=== PATIENT | female | born 1955 | race Caucasian/White ===

== ENCOUNTER 2018-07-31 10:14 | Emergency (ER) | payer BC ==
--- NOTE | 2018-07-31 10:38 | ED ---
Palpitations / Dysrhythmia - HPI Summary HPI Summary: This pt is a 63 y/o female presenting to [facility] c/o palpitations since 0800 today. Pt reports she has had several episodes of palpitations for the past 3 months, about a couple of times a week. She describes palpitations as fluttering. She states that this morning her palpitations were more intense and lasted longer. She also notes she was dizzy today. Pt has felt dizziness once in a while with her past episodes of palpitations. Denies fever, chest pain, SOB , syncope. Pt drinks 1-2 cups of coffee every morning. Denies tobacco or drug use. No PMHx. Pt only takes vitamins, denies any other medications. - History of Current Complaint Chief Complaint: EDDysrhythmPalp Time Seen by Provider: 07/31/18 10:30 Hx Obtained From: Patient Onset/Duration: Lasting Hours, Still Present Timing: Intermittent Episodes Lasting: Severity Currently: Moderate Character: Fluttering Aggravating: Nothing Alleviating: Nothing Associated Signs & Symptoms: Dizzy - Allergy/Home Medications Allergies/Adverse Reactions: Allergies Allergy/AdvReac Type Severity Reaction Status Date / Time codeine Allergy Diaphoresis Verified 07/31/18 10:21 guaifenesin [From Robitussin] Allergy Palpitation Verified 07/31/18 10:21 s Penicillins Allergy Unknown Verified 07/31/18 10:21 Reaction Details Home Medications: Home Medications Cholecalciferol TAB* [Vitamin D TAB*] 400 unit PO DAILY 07/31/18 [History Confirmed 07/31/18] Guaifen/Phenyleph/Acetaminophn [Sinus Relief Sev Congest Cplt] 1 tab PO BID PRN 07/31/18 [History Confirmed 07/31/18] Multivitamins/Minerals TAB* [Theragran/minerals TAB*] 1 tab PO DAILY 07/31/18 [ History Confirmed 07/31/18] PMH/Surg Hx/FS Hx/Imm Hx Endocrine/Hematology History: Denies: Hx Diabetes Cardiovascular History: Denies: Hx Hypertension, Hx Pacemaker/ICD Sensory History: Denies: Hx Hearing Aid Psychiatric History: Denies: Hx Panic Disorder - Cancer History Hx Chemotherapy: No Hx Radiation Therapy: No - Surgical History Surgery Procedure, Year, and Place: RUPTURED ECTOPIC 1993 Infectious Disease History: No Infectious Disease History: Denies: Traveled Outside the [place] in Last 30 Days - Family History Known Family History: Positive: Diabetes - Social History Alcohol Use: Occasionally Substance Use Type: Reports: None Smoking Status (MU): Never Smoked Tobacco Review of Systems Negative: Fever Positive: Palpitations. Negative: Chest Pain Negative: Shortness Of Breath Neurological: Other - POS: dizziness Negative: Syncope All Other Systems Reviewed And Are Negative: Yes Physical Exam - Summary Physical Exam Summary: VITAL SIGNS: Reviewed. GENERAL: Patient is a well-developed and nourished female who is lying comfortable in the stretcher. Patient is not in any acute respiratory distress. HEAD AND FACE: No signs of trauma. No ecchymosis, hematomas or skull depressions. No sinus tenderness. EYES: PERRLA, EOMI x 2, No injected conjunctiva, no nystagmus. EARS: Hearing grossly intact. Ear canals and tympanic membranes are within normal limits. MOUTH: Oropharynx within normal limits. NECK: Supple, trachea is midline, no adenopathy, no JVD, no carotid bruit, no c- spine tenderness, neck with full ROM. CHEST: Symmetric, no tenderness at palpation LUNGS: Clear to auscultation bilaterally. No wheezing or crackles. CVS: Regular rate and rhythm, S1 and S2 present, no murmurs or gallops appreciated. ABDOMEN: Soft, non-tender. No signs of distention. No rebound, no guarding, and no masses palpated. Bowel sounds are normal. EXTREMITIES: FROM in all major joints, no edema, no cyanosis or clubbing. NEURO: Alert and oriented x 3. No acute neurological deficits. Speech is normal and follows commands. SKIN: Dry and warm Triage Information Reviewed: Yes Vital Signs On Initial Exam: Initial Vitals Temp Pulse Resp BP Pulse Ox 98.6 F 73 18 149/106 97 07/31/18 10:23 07/31/18 10:23 07/31/18 10:23 07/31/18 10:23 07/31/18 10:23 Vital Signs Reviewed: Yes Diagnostics - Vital Signs Vital Signs Temp Pulse Resp BP Pulse Ox 07/31/18 10:23 98.6 F 73 18 149/106 97 - Laboratory Result Diagrams: 07/31/18 11:22 07/31/18 11:22 Lab Statement: Any lab studies that have been ordered have been reviewed, and results considered in the medical decision making process. - Radiology Chest XR Radiology Interpretation Completed By: Radiologist Summary of Radiographic Findings: IMPRESSION: No active cardiopulmonary disease. Dr. Porras has reviewed this report. - EKG 10:30 Cardiac Rate: NL - at 71 bpm EKG Rhythm: Sinus Rhythm Summary of EKG Findings: No ST elevations. Diffuse ST abnormalities. Re-Evaluation - Re-Evaluation First Eval Re-Evaluation Time: 12:12 Comment: I reviewed the lab and CXR with the pt. She will be discharged home with follow up from her PCP. Course/Dx - Course Assessment/Plan: Patient is a 63-year-old female who presents to the emergency room with chief complaint of having palpitations. Blood work without any significant abnormality. Urinalysis negative for UTI. EKG shows a sinus rhythm without any ST elevations. Chest x-ray impression: No acute cardiopulmonary pathology. In the ED course the patient is asymptomatic. Therefore the patient will be discharged home with follow-up from primary care physician. I believe that the patient will benefit from a Holter monitor. I discussed all the findings and test results with the patient. Patient was instructed to return to the emergency room immediately if any of the symptoms return or worsens. Plan of care was discussed with the patient and she understands and agrees. All questions were answered at patient satisfaction. There were no further complaints or concerns. Lung exam before discharge: CTA B/ L. Good air exchange. No wheezing or crackles heard. CVS: S1 and S2 present. No murmurs appreciated. Patient is alert and oriented x 3. Patient is hemodynamically stable. Patient will be discharged home with follow up from her PCP in the next 2-3 days. - Diagnoses Provider Diagnoses: Palpitations Discharge - Sign-Out/Discharge Documenting (check all that apply): Patient Departure - Discharge home Patient Received Moderate/Deep Sedation with Procedure: No - Discharge Plan Condition: Stable Disposition: HOME Patient Education Materials: Heart Palpitations (ED) Forms: *Work Release Referrals: Luke Tay MD [Primary Care Provider] - Additional Instructions: FOLLOW UP WITH YOUR PRIMARY CARE PROVIDER WITHIN ONE WEEK FOR HIGH BLOOD PRESSURE NOTED TODAY. RETURN TO THE ED FOR ANY NEW OR WORSENING SYMPTOMS. - Billing Disposition and Condition Condition: STABLE Disposition: Home - Attestation Statements Document Initiated by Scribe: Yes Documenting Scribe: Suzan Hunt Provider For Whom Kermit[employer] is Documenting (Include Credential): Murali Porras MD Scribe Attestation: I, Suzan Hunt, scribed for Murali Porras MD on 07/31/18 at 1812. Scribe Documentation Reviewed: Yes Provider Attestation: The documentation as recorded by the scribe, Suzan Hunt accurately reflects the service I personally performed and the decisions made by me, Murali Porras MD Status of Scribe Document: Viewed
[2018-07-31 11:36] LABS: ABS Basophils 0 10^3/ul (0-0.2); ABS Eosinophils 0.2 10^3/ul (0-0.6); ABS Lymphocytes 1.5 10^3/ul (1.0-4.8); ABS Monocytes 0.6 10^3/ul (0-0.8); ABS Neutrophils 3.8 10^3/ul (1.5-7.7); ABS Nucleated RBC 0 10^3/ul; Eosinophil % 2.7 %; Hematocrit 42 % (33-41); Hemoglobin 14.3 g/dL (12.0-16.0); Lymphocyte % 24.3 %; Mean Corpuscular HGB Conc 34 g/dL (31-36); Mean Corpuscular Hemoglobin 33 pg (27-31); Mean Corpuscular Volume 95 fL (80-97); Mean Platelet Volume 8.5 fL (7.4-10.4); Nucleated Red Blood Cells % 0.1; Platelet Count 247 10^3/uL (150-450); Red Blood Count 4.42 10^6 /uL (3.70-4.87); Red Cell Distribution Width 13 % (10.5-15)
[2018-07-31 11:42] LABS: Urine Appearance Clear; Urine Bilirubin Negative (Negative); Urine Blood Negative (Negative); Urine Color Straw; Urine Glucose Negative (Negative); Urine Ketones Negative (Negative); Urine Nitrite Negative (Negative); Urine Protein Negative (Negative); Urine Specific Gravity 1.006 (1.010-1.030); Urine Urobilinogen Negative (Negative)
[2018-07-31 11:56] LABS: Troponin I 0.01 ng/mL (<0.04)
[2018-07-31 11:57] LABS: Albumin 4.3 g/dL (3.2-5.2); Albumin/Globulin Ratio 1.5 (1-3); BUN/Creatinine Ratio 28.1 (8-20); Calcium 9.5 mg/dL (8.6-10.3); EGFR African American 130.5 (>60); EGFR Non-African American 107.8 (>60); Globulin 2.9 g/dL (2-4); Magnesium 2.2 mg/dL (1.9-2.7); Potassium 3.9 mmol/L (3.5-5.0); Total Bilirubin 0.6 mg/dL (0.2-1.0); Total Protein 7.2 g/dL (6.4-8.9)
[2018-07-31 12:22] LABS: TSH (Thyroid Stimulating Horm) 1.75 mcIU/mL (0.34-5.60)
[2018-07-31 12:24] VITALS: BP 141/78
== END 2018-07-31 12:23 | disposition home or self-care (01) ==
LOC: ED 10:14
DX: R00.2 Palpitations (principal); R42 Dizziness and giddiness; Z88.5 Allergy status to narcotic agent; Z88.0 Allergy status to penicillin; Z88.8 Allergy status to other drugs, medicaments and biological substances
CPT/HCPCS: 36415; 71046; 80053; 81003; 82550; 82553; 83605; 83735; 83880; 84443; 84484; 85025; 93005; 99284